=== PATIENT | female | born 1985 | race Caucasian/White ===

== ENCOUNTER 2022-09-19 18:13 | Emergency (ER) | payer BC, SELFPAY ==
[2022-09-19 18:23] VITALS: BP 112/72; PULSE 56; RESP 18; TEMP 36.8; O2SAT 100
--- NOTE | 2022-09-19 18:38 | ED.FEMALEGU ---
HPI - Female Genitourinary General Chief complaint: Urogenital-Female Stated complaint: Female Urogenital Time Seen by Provider: 09/19/22 18:30 Source: patient and RN notes reviewed Mode of arrival: ambulatory Limitations: no limitations History of Present Illness HPI Narrative: Patient presents today complaining of milky white vaginal discharge, external genital itching, irritation, and dryness. Symptoms have been present intermittently over the past couple of months, but worse over the past 3 days. Patient has been swimming over the last 3 days, and believes this may be contributing. Denies urinary symptoms to include dysuria, frequency, or urgency. She has been using [id number] yeast treatment for the past 3 days and has gotten some mild relief, but feels like symptoms returned today. Denies concerns for sexually transmitted infections. Related Data Home Medications Medication Instructions Recorded Confirmed cetirizine 10 mg tablet 20 mg PO DAILY 09/19/22 09/19/22 Allergies Allergy/AdvReac Type Severity Reaction Status Date / Time acetaminophen Allergy Mild Unknown Verified 09/19/22 18:31 propoxyphene Allergy Mild Unknown Verified 09/19/22 18:31 Sulfa (Sulfonamide Allergy Mild Unknown Verified 09/19/22 18:31 Antibiotics) sulfamethoxazole Allergy Mild Unknown Verified 09/19/22 18:31 trimethoprim Allergy Mild Unknown Verified 09/19/22 18:31 nitrofurantoin Allergy Unknown Skin Verified 09/19/22 18:31 Reaction MED FOR BOWELS Allergy Mild Dizziness Uncoded 05/10/08 13:23 NITRATE Allergy Mild Unknown Uncoded 09/19/22 18:31 PROPOXYPHENE NAPSYLATE Allergy Mild Unknown Uncoded 09/19/22 18:31 Review of Systems Review of Systems: CONSTITUTIONAL: Denies body aches, fever, chills, or sweats. EYES: Denies visual changes, redness, or discharge. ENT: Denies rhinorrhea, congestion, sore throat, or otalgia. CARDIOVASCULAR: Denies chest pain, palpitations, or edema. RESPIRATORY: Denies cough or dyspnea. GASTROINTESTINAL: Denies abdominal pain, nausea, vomiting, or diarrhea. GENITOURINARY: Denies dysuria or hematuria.+ vaginal discharge, genital itching, irritation, dryness SKIN: Denies rash, itching, or wounds. MUSCULOSKELETAL: Denies back pain, joint pain, or myalgia. NEUROLOGIC: Denies headache, numbness, tingling, or weakness. PSYCH: Denies depression or anxiety. PMFSH Comments At time of signature, I have reviewed and agree with nursing past medical, surgical, social and family history unless otherwise noted. Please see nursing chart for further information. There is no relevant family history pertinent to the presenting complaint Exam Narrative: GENERAL: Well-appearing, well-nourished, and in no acute distress. HEAD: Normocephalic, atraumatic. EYES: EOMI. No redness or drainage. Conjunctivae normal. ENT: Mucous membranes pink and moist. NECK: Normal AROM. CHEST: No respiratory distress. : Patient declined pelvic exam. EXTREMITIES: Normal range of motion. No edema. SKIN: Warm, dry, no rash. Capillary refill normal. Normal skin turgor. NEURO: No focal deficits. Alert and oriented x3. Gait steady. PSYCH: Normal affect. No signs of depression or anxiety. Course Course Level of Care: Express Care Visit Vital Signs Vital signs: Vital Signs Temperature 98.3 F 09/19/22 18:23 Pulse Rate 56 L 09/19/22 18:23 Respiratory Rate 18 09/19/22 18:23 Blood Pressure 112/72 09/19/22 18:23 Pulse Oximetry 100 09/19/22 18:23 Oxygen Delivery Room Air 09/19/22 18:23 Temperature 98.3 F 09/19/22 18:23 Pulse Rate 56 L 09/19/22 18:23 Respiratory Rate 18 09/19/22 18:23 Blood Pressure 112/72 09/19/22 18:23 Pulse Oximetry 100 09/19/22 18:23 Oxygen Delivery Room Air 09/19/22 18:23 Reviewed MDM - Female Genitourinary MDM Narrative Medical decision making narrative: Based on patient's HPI, will treat her with Diflucan for presumed vulvovaginitis. She agrees
--- NOTE | 2022-09-19 18:41 | PC.NURSE ---
PT DECLINES VAGINAL EXAM AND CULTURE COLLECTION
== END 2022-09-19 18:45 | disposition home or self-care (01) ==
PROVIDERS: Emergency Provider Nurse Practitioner; PCP Family Medicine
DX: B37.31 Acute candidiasis of vulva and vagina (principal)
CPT/HCPCS: 81003; 99213; G0463

== ENCOUNTER → 2023-04-11 09:37 | Outpatient (CLI) | payer BC, SELFPAY ==
--- NOTE | ~2023-04-11 | XR_ITS ---
XR_[id number] DATE: 04/11/2023 10:03 INDICATION: Cervical radiculopathy. Numbness of right arm. No injury. TECHNIQUE: AP, open-mouth, lateral, swimmer views COMPARISON: None FINDINGS: There is straightening of the cervical spine which may be due to muscle spasm. C1 and C2 are normally aligned and the odontoid process is intact. There is minimal anterolisthesis at C3-4 and C4-5. Moderate degenerative disc disease with anterior posterior spurring at C5-6. The cervical interspaces are otherwise well preserved. No fracture or dislocation or locked facet or prevertebral soft tissue swelling. Uncovertebral joint spurring is noted bilaterally at C5-6. IMPRESSION: Straightening of cervical spine, which may be due to muscle spasm Minimal anterolisthesis at C3-4 and C4-5 Moderate degenerative disc disease and bilateral uncovertebral joint spurring at C5-6 Reviewed, dictated and finalized at [facility]. Reviewed, dictated and finalized at [facility]. [employer] IMPRESSION: Straightening of cervical spine, which may be due to muscle spasm Minimal anterolisthesis at C3-4 and C4-5 Moderate degenerative disc disease and bilateral uncovertebral joint spurring a t C5-6
== END ==
DX: M54.12 Radiculopathy, cervical region (principal); M50.322 Other cervical disc degeneration at C5-C6 level
CPT/HCPCS: 72040